=== PATIENT | male | born 1940 | race Caucasian/White ===

== ENCOUNTER 2021-02-02 07:31 | Inpatient (IN) | payer MEDICARE ==
[~2021-02-02] VITALS: Ht 175.3 cm; Wt 75.4 kg
[2021-02-02 10:36] LABS: BASOPHIL 0.1 % (0-2); EOSINOPHIL 0 % (0-7); HCT 45.7 % (42.0-52.0); HGB 15.8 g/dl (13.2-18.0); MCHC 34.6 g/dL (32.0-36.0); MCV 86.9 fL (78.0-100.0); MONOCYTE 6.6 % (0-12); MPV 10.6 fL (6.0-9.5); NRBC 0; PLT 237 K/uL (150-400); RBC 5.26 M/uL (4.70-6.00); RDW 12.5 % (11.5-14.0); WBC 10.4 K/uL (4.0-10.5)
[2021-02-02 11:39] LABS: ALBUMIN 3.9 g/dL (3.4-5.0); BILIRUBIN - TOTAL 0.8 mg/dL (0.2-1.0); CREATININE 0.89 mg/dL (0.67-1.17); GLOBULIN (CALCULATION) 3.5 g/dL; TOTAL PROTEIN 7.4 g/dL (6.4-8.2)
[2021-02-02] MEDS ORDERED: PRAVACHOL20 MG PO (17:59)
[2021-02-02] MEDS ORDERED: NORVASC5 MG PO (17:59)
[2021-02-02] MEDS ORDERED: ASPIRIN EC81 MG PO (18:01)
[2021-02-03 07:49] LABS: BILIRUBIN NEGATIVE (NEGATIVE); BLOOD TRACE-INTACT Ery/uL (NEGATIVE); CLARITY CLEAR (CLEAR); COLOR YELLOW (YELLOW); GLUCOSE (U) NORMAL (NORMAL); LEUKOCYTES NEGATIVE Leu/uL (NEGATIVE); NITRITE NEGATIVE (NEGATIVE); PROTEIN NEGATIVE (NEGATIVE); UROBILINOGEN 0.2 mg/dL (0.2-1.0)
[2021-02-03 08:00] LABS: URINARY RBC RARE; URINARY WBC RARE
--- NOTE | 2021-02-03 12:55 | NUR ---
02/03 Mr. Campo lives at home with his spouse. He was independent in the home and community prior to admission.
--- NOTE | 2021-02-04 14:32 | NUR ---
REPORT GIVEN TO AIDE CASTILLO [facility], EMS CALLED
== END 2021-02-04 17:21 | disposition other institution (70) | DRG 310 ==
LOC: FER 07:31 → FMS 13:45
PROVIDERS: Emergency Medicine; ADMIT Family Medicine
DX: I45.2 Bifascicular block (principal); I10 Essential (primary) hypertension; E78.5 Hyperlipidemia, unspecified; Z20.822 Contact with and (suspected) exposure to COVID-19; I95.1 Orthostatic hypotension; R11.2 Nausea with vomiting, unspecified; Z79.82 Long term (current) use of aspirin; Z79.899 Other long term (current) drug therapy; Z90.49 Acquired absence of other specified parts of digestive tract; Z87.891 Personal history of nicotine dependence
CPT/HCPCS: 36415; 71045; 80053; 81001; 84484; 85025; 93005; 96372; 97162; 97530-GP; G0378; J1650; J2405; J7030; U0002